=== PATIENT | male | born 1995 | race Caucasian/White ===

== ENCOUNTER 2016-08-02 18:57 | Emergency (ER) | payer OTHER ==
[~2016-08-02 18:57] MED LIST: IBUPROFEN800 MG PO; NORCO 5-325 TA1 EACH PO
== END 2016-08-02 21:38 | disposition home or self-care (01) ==
LOC: FER 18:57
DX: J02.0 Streptococcal pharyngitis (principal); F17.210 Nicotine dependence, cigarettes, uncomplicated
CPT/HCPCS: 87450; 87804; 87899; J0561

== ENCOUNTER 2020-09-06 21:52 | Emergency (ER) | payer OTHER ==
[~2020-09-06 21:52] MED LIST changes: +CIPRODEX OTIC7.5 ML AU; +KEFLEX250 MG PO; +NAPROXEN500 MG PO; +ZOFRAN4 MG PO
[2020-09-06] MEDS ORDERED: NORCO 5-325 TA1 EACH PO (23:45)
[2020-09-06] MEDS ORDERED: BACTRIM DS TAB1 EACH PO (23:45)
== END 2020-09-06 23:59 | disposition home or self-care (01) ==
LOC: FER 21:52
DX: L72.3 Sebaceous cyst (principal); F17.210 Nicotine dependence, cigarettes, uncomplicated

== ENCOUNTER 2021-05-27 12:45 | Emergency (ER) | payer OTHER ==
[~2021-05-27 12:45] MED LIST changes: +BACTRIM DS TAB1 EACH PO
== END 2021-05-27 14:43 | disposition home or self-care (01) ==
LOC: FER 12:45
DX: M85.671 Other cyst of bone, right ankle and foot (principal); F17.210 Nicotine dependence, cigarettes, uncomplicated; W00.0XXA Fall on same level due to ice and snow, initial encounter
CPT/HCPCS: 73630